=== PATIENT | male | born 1980 | race Caucasian/White ===

== ENCOUNTER 2020-06-27 00:14 | Emergency (ER) | payer SELFPAY ==
[2020-06-27 00:18] VITALS: BP 110/64; PULSE 98; RESP 18; TEMP 36.7; O2SAT 100; BMI 27.9
[2020-06-27 00:29] VITALS: BP 137/66; PULSE 107; O2SAT 100
--- NOTE | 2020-06-27 00:36 | CTR_ITS ---
PROCEDURE INFORMATION: Exam: CT Head Without Contrast Exam date and time: 06/27/2020 12:37 AM Age: 39 years old Clinical indication: Pain; Headache; Additional info: Sudden onset head pain TECHNIQUE: Imaging protocol: Computed tomography of the head without contrast. Radiation optimization: All CT scans at this facility use at least one of these dose optimization techniques: automated exposure control; mA and/or kV adjustment per patient size (includes targeted exams where dose is matched to clinical indication); or iterative reconstruction. ADDITIONAL STUDY INFORMATION: Total DLP (mGy-cm): 1077.18 COMPARISON: No relevant prior studies available. FINDINGS: Some patient motion artifacts are demonstrated. Evaluation of the brain otherwise demonstrates no convincing areas of abnormal density. Size of ventricular system appears within normal limits for the patient's stated age. No depressed calvarial fracture is demonstrated. Visualized paranasal sinuses and mastoid air cells demonstrate no significant opacification. CT/CT head wo con* [id number] IMPRESSION: No definite acute intracranial process is demonstrated. Radiation Dose CTDIVOL = (mGy): DLP = 1077.18 (mGy-cm)
--- NOTE | 2020-06-27 00:37 | W.ED.HA ---
HPI - Headache General: Chief Complaint: Headache Stated Complaint: headache Time Seen by Provider: 06/27/20 00:31 History of Present Illness: HPI Narrative: She complains about sudden onset severe head pain. 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 Denies nausea or vomiting denies any injury stress or other related problems. Denies any illness over the last few weeks. Denies any has had a headache like this in the past. MD elicited complaint: headache Onset (ago): minute(s) Onset description: suddenly Location: generalized Severity: severe Quality & Timing: sharp Exacerbating factors: light Relieving factors: nothing Context: occurred at rest Associated symptoms: Reports no associated symptoms; Deny chest pain, fever(s), nausea, rash or vomiting Treatments prior to arrival: none Review of Systems Const: Denies: fever(s), chills or body aches Eyes: Denies: change in vision or blurry vision ENMT: Denies: throat pain or nasal congestion Card: Denies: chest pain or dyspnea on exertion Resp: Denies: dyspnea, productive cough or non-productive cough GI: Denies: abdominal pain, nausea or vomiting : Denies: difficulty urinating Musc: Denies: extremity pain Skin/Breast: Denies: rash Neuro: Reports: headache(s) (Severe started suddenly 30 minutes ago.) Psych: Denies: anxiety or depression Norberto/Lymph: Denies: easy bruising PFSH ED PFSH: Social History (Updated 11/18/19 @ 10:18 by Basilia Chi LPN) Smoking and tobacco status: never smoked Alcohol intake: never Physical Exam Const: COMMON NORMALS: no acute distress, average body habitus and patient oriented x3 HENMT: COMMON NORMALS: normocephalic HEAD & SCALP: normal to inspection and normocephalic FACE & SINUS: normal facial exam Eye: COMMON NORMALS: conjunctivae normal GENERAL EYE: appearance normal, both eyes and all related structures CONJUNCTIVA: Yes conjunctivae normal Neck/C-Spine: COMMON NORMALS: no JVD Chest: COMMONS NORMALS: normal inspection of the chest Resp: COMMON NORMALS: normal respiratory effort and clear to auscultation bilaterally AUSCULTATION: clear to auscultation bilaterally Cardio: COMMON NORMALS: no JVD, regular rate and regular rhythm RATE: regular rate RHYTHM: regular rhythm Extremity: COMMON NORMALS: normal to inspection and full ROM Neuro: COMMON NORMALS: patient oriented x3, CN's II-XII intact bilaterally, moves all extremities, no focal motor deficits and no sensory deficits noted SPEECH: speech normal Course Vital Signs: Vital signs: Vital Signs Temperature 98.1 F 06/27/20 00:18 Pulse Rate 101 H 06/27/20 01:27 Respiratory Rate 18 06/27/20 00:18 Blood Pressure 137/66 06/27/20 00:29 Pulse Oximetry 96 06/27/20 01:27 Discharge Plan Discharge Patient Disposition: Home Clinical Impression: Headache Qualifiers: Headache type: other vascular headache Qualified Code(s): G44.1 - Vascular headache, not elsewhere classified Condition: Stable Prescriptions: No Action gabapentin 600 mg tablet 600 mg PO DAILY RF: 0 Discharge Orders: Discharge ED (Routine); Ordered 06/27/20 Ordered By: Celso Horowitz Discharge Diet: Usual diet Discharge Activity: Increase activity as tolerated Patient Instructions: Acute Headache (ED) Activity Restrictions/Additional Instructions: Follow-up your family medical provider if no significant improvement. He can return to the ER. Can take Tylenol and/or ibuprofen for headache are [id number] migraine medication as needed. 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
[2020-06-27] MEDS: sodium chloride 0.9% 1,000 ML 999 ML IV (00:48)
[2020-06-27] MEDS: ondansetron 2 mg/ML SDV 2 mL 4 MG IVP (00:48)
[2020-06-27] MEDS: ketorolac 30 mg/mL INJ 15 MG IVP (01:23)
[2020-06-27] MEDS: diphenhydrAMINE 50 mg/mL SDV 1mL 12.5 MG IVP (01:23)
[2020-06-27 01:27] VITALS: PULSE 101; O2SAT 96
[2020-06-27] MEDS: SUMAtriptan 6 mg/0.5 mL SDV SUBCUT (01:47)
[2020-06-27 02:07] VITALS: BP 128/60; PULSE 104; O2SAT 96
[2020-06-27 02:11] VITALS: BP 128/60; PULSE 104; O2SAT 96
== END 2020-06-27 02:12 | disposition home or self-care (01) ==
PROVIDERS: Emergency Provider Nurse Practitioner Family
DX: G44.1 Vascular headache, not elsewhere classified (principal)
CPT/HCPCS: 70450; 96361; 96372; 96374; 96375; 99284; J1200; J1885; J2405; J3030; J7030

== ENCOUNTER 2020-12-24 09:17 | Emergency (ER) | payer SELFPAY ==
[2020-12-24 09:27] VITALS: BP 133/67; PULSE 90; RESP 19; TEMP 37.7; O2SAT 100
--- NOTE | 2020-12-24 09:45 | XR_ITS ---
WS: [id number] Portable AP upright chest, 12/24/2020 Clinical Data: fever, body aches Comparison: Portable chest, 10/05/2014. Findings: No nodules, masses or effusions are seen. The heart is normal. The pulmonary vascularity is not increased. No pneumonia or pneumothorax is seen. XR/XR chest 1V portable [id number] Impression: Negative chest.
--- NOTE | 2020-12-24 09:46 | CT_ITS ---
WS: [id number] CT scan of the abdomen and pelvis with IV contrast. Additional two-dimensional coronal and sagittal r econstruction was performed. 12/24/2020 Clinical Data: abdominal pain, vomiting, dark urine; weight loss Comparison: CT chest abdomen pelvis, 12/10/2007 DLP: 1198.[address] scans at [facility] use at least one of these dose optimization techniques: automat ed exposure control; mA and/or kV adjustment per patient size (includes targeted exams where dose is matched to clinical indication); or iterative reconstruction. Findings: The lower lungs show no nodules, masses or effusions. The liver, gallbladder, spleen, adrenal glands and pancreas are normal. The kidneys show equal bilateral contrast excretion with no cyst or masses. The abdominal aorta is normal in size. No appendicitis or diverticulitis is seen. The stomach, small bowel and colon show no abnormalities. No abscess, adenopathy, ascites, mass, obstruction or free air is seen. The bladder is unremarkable. No inguinal hernia is seen. The bones of the lower thorax, lumbar spine, pelvis, and hips are normal. CT/CT abdomen pelvis w con* [id number] Impression: Negative for acute intra-abdominal or pelvic abnormalities.
--- NOTE | 2020-12-24 09:47 | ED_ITS ---
HPI - Abdominal Pain General: Chief Complaint: Abdominal Pain Stated Complaint: COVID VACCINE YESTERDAY, NOT FEELING WELL TODAY Time Seen by Provider: 12/24/20 09:32 Source: patient Mode of arrival: ambulatory Limitations: no limitations History of Present Illness: HPI narrative: Patient is a 40-year-old male who presents to ED today stating he generally feels unwell. Patient tells me he has been having abdominal pain over the past 3 months. He tells me it feels like his abdomen is twisting . He has had some associated non-bloody emesis as well. Reports bowel movements have been normal. He states yesterday he noticed his urine had white flakes in it and seemed darker than normal. He states over the past few days he has had subjective fevers, chills, and body aches. He did receive a COVID immunization yesterday. Patient has a history of hepatitis C. Admits to previous and recent drug use. MD elicited complaint: abdominal pain Pertinent past history: other (hepatitis C) Onset (ago): day(s) Pain Consistency: constant Location: Diffuse Quality: cramping Radiation: none Migration to: no migration Associated Symptoms: Reports chills, fever(s), nausea and vomiting; Denies change in bowel habits, change in stool character, diarrhea, dysuria, hematochezia, hematuria, hematemesis, melena and syncope Review of Systems Const: Reports: fever(s), chills, body aches, change in weight and fatigue Eyes: Denies: change in vision or blurry vision ENMT: Denies: throat pain, odynophagia, nasal discharge or nasal congestion Card: Denies: chest pain, palpitations, irregular heart rhythm, edema, swell ing of feet/ankles, lightheadedness, syncope or pre-syncope Resp: Denies: dyspnea, productive cough, wheezing, hemoptysis or chest congestion GI: Reports: abdominal pain, nausea and vomiting; Denies: hematemesis, diarrhea, change in bowel habits, change in stool ch aracter, hematochezia or melena : Denies: flank pain, difficulty urinating, dysuria or hematuria Musc: Denies: neck pain, back pain, extremity pain or joint pain Skin/Breast: Denies: rash Neuro: Denies: headache(s), numbness in extremities, weakness in extremities, sensory changes or dizziness [facility] ED PFS: Social History (Updated 11/18/19 @ 10:18 by Basilia Chi LPN) Smoking and tobacco status: never smoked Alcohol intake: never Physical Exam Const: COMMON NORMALS: no acute distress, average body habitus, patient oriented x3, no limitations, healthy appearing, alert and well nourished GENERAL APPEARANCE: cooperative ORIENTATION/CONSCIOUSNESS: Yes awake, Yes oriented to person, Yes oriented to place and Yes oriented to time HENMT: COMMON NORMALS: normocephalic and atraumatic HEAD & SCALP: normocephalic and atraumatic Neck/C-Spine: COMMON NORMALS: full ROM, no lymphadenopathy and no meningeal signs Resp: COMMON NORMALS: normal respiratory effort and clear to auscultation bilaterally AUSCULTATION: clear to auscultation bilaterally Cardio: COMMON NORMALS: regular rate and regular rhythm RATE: regular rate RHYTHM: regular rhythm GI: COMMON NORMALS: Normal to inspection, nondistended, normoactive bowel sounds present, Soft to palpation, No hepatosplenomegaly present and no masses PALPATION: Yes Soft to palpation, Yes Tenderness to palpation present (GI) (diffusely), Yes Guarding due to palpation present (GI) and Yes No hepatospl enomegaly present : COMMON NORMALS: Yes no CVA tenderness BLADDER/KIDNEY EXAM: Yes no CVA tenderness Back/Pelvis: COMMON NORMALS: no CVA tenderness, thoracic and lumbar spine normal to inspection, no thoracic nor lumbar tenderness and thoraco-lumbar ROM normal Extremity: COMMON NORMALS: normal to inspection, capillary refill normal, no clubbing, cyanosis or edema, no calf tenderness and no pedal edema Neuro: PAUL COMA SCALE: document GCS findings [place] coma scale eye opening: Spontaneous Paul coma scale verbal response: Orientated Paul coma scale motor response: Obey commands [place] coma scale total score: 15 COMMON NORMALS: patient oriented x3, CN's II-XII intact bilaterally, moves all extremities, no focal motor deficits, no sensory deficits noted and gait normal SENSORIUM/ORIENTATION: Yes alert, Yes oriented to person, Yes oriented to place and Yes oriented to time MENINGEAL SIGNS: Yes no meningeal signs Skin: COMMON NORMALS: no rashes or lesions noted NARRATIVE SKIN EXAM: multiple tattoos present GENERAL SKIN EXAM: no rashes or lesions noted TRAUMA: no lacerations or abrasions Course Vital Signs: Vital signs: Vital Signs Temperature 99.8 F H 12/24/20 09:27 Pulse Rate 78 12/24/20 11:18 Respiratory Rate 16 12/24/20 11:18 Blood Pressure 137/74 12/24/20 11:18 Pulse Oximetry 97 12/24/20 11:18 MDM - Abdominal Pain MDM Narrative: Medical decision making narrative: Patient clinically appears in no acute distress. His vital signs are stable. Labs are non-concerning. Influenza and rapid COVID negative. CXR is normal. CT abdomen/pelvis without acute pathology. Patient is stable for discharge. He is requesting follow-up with Dr. Small for evaluation for possible treatment of hepatitis C. Lab Data: Attestation: I reviewed the patient's lab results. Labs: Lab Results 12/24/20 12/24/20 12/24/20 Range/Units 09:45 09:45 09:45 WBC 6.0 (4.0-10.0) 10^3/ uL RBC 4.49 (4.1-5.3) 10^6/u L Hgb 13.6 (11.7-16.6) g/dL Hct 39.8 L (42.0-52.0) % MCV 88.6 (80-94) fl MCH 30.3 (28.0-34.0) pg MCHC 34.2 (30.0-36.0) g/dL RDW 12.9 (12.1-15.1) % Plt Count 169 (130-400) 10^3/c mm MPV 9.7 (7.4-10.4) fL Neut % (Auto) 72.5 % Lymph % (Auto) 17.1 % [place] % (Auto) 9.0 % Eos % (Auto) 0.7 % Baso % (Auto) 0.5 % Neut # (Auto) 4.33 (1.8-7.7) 10^3/u L Lymph # (Auto) 1.0 (0.8-4.8) 10^3/u L [place] # (Auto) 0.5 (0.2-0.9) 10^3/u L Eos # (Auto) 0.0 (0.0-0.8) 10^3/u L Baso # (Auto) 0.0 (0.0-0.1) 10^3/u L Nucleated RBC % (a uto) 0 % Nucleated RBCs # 0.0 /100WBC Sodium 135 L (136-145) mmol/L Potassium 3.9 (3.5-5.1) mmol/L Chloride 95 L (98-107) mmol/L Carbon Dioxide 29 (22-29) mmol/L Anion Gap 14.9 (5-19) BUN 14 (6-20) mg/dL Creatinine 0.9 (0.7-1.2) mg/dL GFR Calculation 93.5 (90-130) mL/min Glucose 97 (65-115) mg/dL Calculated Osmolal ity 280 L (285-295) mOsm/k g Lactic Acid 1.7 (0.5-2.2) mmol/L Calcium 8.8 (8.5-10.5) mg/dL Total Bilirubin 1.0 (0.15-1.2) mg/dL AST 38 (0-40) U/L ALT 48 H (0-41) U/L Alkaline Phosphata se 109 (40-130) IU/L Creatine Kinase 111 (39-308) U/L Total Protein 6.9 (6.6-8.7) g/dL Albumin 4.1 (3.5-5.2) g/dL Globulin 2.8 (1.3-4.6) g/dL Lipase 21 (13-60) U/L Urine Color (Yellow) Urine Appearance (CLEAR) Urine pH (5-7) Ur Specific Gravit y (1.005-1.030) Urine Protein (Negative) Urine Glucose (UA) (Normal) Urine Ketones (Negative) Urine Blood (Negative) Urine Nitrate (Negative) Urine Bilirubin (Negative) Urine Urobilinogen (Negative) mg/dL Ur Leukocyte Galina ase (Negative) Urine RBC (0-2) /hpf Urine WBC (0-5) /hpf Ur Squamous Epith Cells (0-5) /hpf Amorphous Sediment Urine Bacteria (NONE) /hpf Influenza Type A A g (Negative) Influenza Type B A g (Negative) SARS-CoV-2 Ag (Rap id) (Negative) 12/24/20 12/24/20 12/24/20 Range/Units 10: 10:21 11:30 WBC (4.0-10.0) 10^3/ uL RBC (4.1-5.3) 10^6/u L Hgb (11.7-16.6) g/dL Hct (42.0-52.0) % MCV (80-94) fl MCH (28.0-34.0) pg MCHC (30.0-36.0) g/dL RDW (12.1-15.1) % Plt Count (130-400) 10^3/c mm MPV (7.4-10.4) fL Neut % (Auto) % Lymph % (Auto) % [place] % (Auto) % Eos % (Auto) % Baso % (Auto) % Neut # (Auto) (1.8-7.7) 10^3/u L Lymph # (Auto) (0.8-4.8) 10^3/u L [place] # (Auto) (0.2-0.9) 10^3/u L Eos # (Auto) (0.0-0.8) 10^3/u L Baso # (Auto) (0.0-0.1) 10^3/u L Nucleated RBC % (a uto) % Nucleated RBCs # /100WBC Sodium (136-145) mmol/L Potassium (3.5-5.1) mmol/L Chloride (98-107) mmol/L Carbon Dioxide (22-29) mmol/L Anion Gap (5-19) BUN (6-20) mg/dL Creatinine (0.7-1.2) mg/dL GFR Calculation (90-130) mL/min Glucose (65-115) mg/dL Calculated Osmolal ity (285-295) mOsm/k g Lactic Acid (0.5-2.2) mmol/L Calcium (8.5-10.5) mg/dL Total Bilirubin (0.15-1.2) mg/dL AST (0-40) U/L ALT (0-41) U/L Alkaline Phosphata se (40-130) IU/L Creatine Kinase (39-308) U/L Total Protein (6.6-8.7) g/dL Albumin (3.5-5.2) g/dL Globulin (1.3-4.6) g/dL Lipase (13-60) U/L Urine Color Yellow (Yellow) Urine Appearance Clear (CLEAR) Urine pH 5 (5-7) Ur Specific Gravit y 1.010 (1.005-1.030) Urine Protein Neg (Negative) Urine Glucose (UA) Norm (Normal) Urine Ketones Negative (Negative) Urine Blood Neg (Negative) Urine Nitrate Negative (Negative) Urine Bilirubin Neg (Negative) Urine Urobilinogen Neg (Negative) mg/dL Ur Leukocyte Galina ase 1+ H (Negative) Urine RBC None (0-2) /hpf Urine WBC 0-4 H (0-5) /hpf Ur Squamous Epith Cells 0-4 H (0-5) /hpf Amorphous Sediment Not Reportable Urine Bacteria None (NONE) /hpf Influenza Type A A g Negative (Negative) Influenza Type B A g Negative (Negative) SARS-CoV-2 Ag (Rap id) Negative (Negative) Imaging Data ^: CXR: Radiologist's impression: [address] [id number] ReportSigned Patient: Phong Knight #: [id number]: [birth year]Acct#:[id number]/Sex: 40 / MADM Date: 12/24/20Loc: ERRoom/Bed:Attending Dr: Ordering Provider/Ordering MD: Ruby Ramírez Date of Service: 12/24/20 Procedure(s): XR chest 1V portable [id number] Accession Number(s): [id number] Report Number: [id number] WS: [id number] Portable AP upright chest, 12/24/2020 Clinical Data: fever, body aches Comparison: Portable chest, 10/05/2014. Findings: No nodules, masses or effusions are seen. The heart is normal. The pulmonary vascularity is not increased. No pneumonia or pneumothorax is seen. XR/XR chest 1V portable [id number] Impression: Negative chest. Dictated By:Bing Ruelas MDSigned By:Bing Ruelas MDSigned Date/Time:12/24/2056DD/ 0955 CT Abd/Pel: Radiologist's impression: [address] [id number] Scan ReportSigned Patient: Phong Knight #: [id number]: 1980Acct#:[id number]/Sex: 40 / MADM Date: 12/24/20Loc: ERRoom/Bed:Attending Dr: Ordering Provider/Ordering MD: Ruby Ramírez Date of Service: 12/24/20 Procedure(s): CT abdomen pelvis w con* [id number] Accession Number(s): [id number] Report Number: [id number] WS: [id number] CT scan of the abdomen and pelvis with IV contrast. Additional two-dimensional coronal and sagittal reconstruction was performed. 12/24/2020 Clinical Data: abdominal pain, vomiting, dark urine; weight loss Comparison: CT chest abdomen pelvis, 12/10/2007 DLP: 1198.[address] scans at [facility] use at least one of these dose optimizat ion techniques: automated exposure control; mA and/or kV adjustment per patient size (includes targeted exams where dose is matched to clinical indication); or iterative reconstruction. Findings: The lower lungs show no nodules, masses or effusions. The liver, gallbladder, spleen, adrenal glands and pancreas are normal. The kidneys show equal bilateral contrast excretion with no cyst or masses. The abdominal aorta is normal in size. No appendicitis or diverticulitis is seen. The stomach, small bowel and colon show no abnormalities. No abscess, adenopathy, ascites, mass, obstruction or free air is seen. The bladder is unremarkable. No inguinal hernia is seen. The bones of the lower thorax, lumbar spine, pelvis, and hips are normal. CT/CT abdomen pelvis w con* [id number] Impression: Negative for acute intra-abdominal or pelvic abnormalities. Dictated By:Bing Ruelas MDSigned By:Bing Ruelas MDSigned Date/Time:12/24/20 1100DD/ 1054 Discharge Plan Discharge Patient Disposition: Home Clinical Impression: Generally unwell Condition: Stable Prescriptions: No Action [place] Aspirin 325 mg Tablet 325 mg PO PRN RF: 0 ibuprofen 200 mg Tablet 800 mg PO Q6H PRN (Reason: Pain) RF: 0 Discharge Orders: Discharge ED (Routine); Ordered 12/24/20 Ordered By: Ruby Ramírez Referrals: Gildardo Small MD [Physician] - Coding Level of Care Code ED Manager Express for Chg Fwd Exam Comprehensive
[2020-12-24 09:57] LABS: Basophils % 0.5 %; Eosinophils % 0.7 %; Hematocrit 39.8 % (42.0-52.0); Hemoglobin 13.6 g/dL (11.7-16.6); Lymphocytes % 17.1 %; Mean Corpuscular HGB Conc 34.2 g/dL (30.0-36.0); Mean Corpuscular Hemoglobin 30.3 pg (28.0-34.0); Mean Corpuscular Volume 88.6 fl (80-94); Mean Platelet Volume 9.7 fL (7.4-10.4); Monocytes # 0.5 10^3/uL (0.2-0.9); Neutrophils # 4.33 10^3/uL (1.8-7.7); Neutrophils % 72.5 %; Nucleated Red Blood Cells % 0 %; Platelet Count 169 10^3/cmm (130-400); Red Blood Count 4.49 10^6/uL (4.1-5.3); Red Cell Distribution Width 12.9 % (12.1-15.1)
[2020-12-24 10:12] LABS: Lactic Sepsis W/Reflex 1.7 mmol/L (0.5-2.2)
[2020-12-24 10:16] LABS: Alanine Aminotransferase 48 U/L (0-41); Albumin Level 4.1 g/dL (3.5-5.2); Alkaline Phosphatase 109 IU/L (40-130); Anion Gap 14.9 (5-19); Aspartate Amino Transferase 38 U/L (0-40); Blood Urea Nitrogen 14 mg/dL (6-20); Calcium 8.8 mg/dL (8.5-10.5); Carbon Dioxide 29 mmol/L (22-29); Chloride 95 mmol/L (98-107); Creatine Phosphokinase 111 U/L (39-308); Globulin 2.8 g/dL (1.3-4.6); Glomerular Filtration Rate 93.5 mL/min (90-130); Glucose 97 mg/dL (65-115); Lipase 21 U/L (13-60); Osmolality Calculated 280 mOsm/kg (285-295); Potassium 3.9 mmol/L (3.5-5.1); Sodium 135 mmol/L (136-145); Total Protein 6.9 g/dL (6.6-8.7)
[2020-12-24] MEDS: sodium chloride 0.9% 1,000 ML 999 ML IV (10:16)
[2020-12-24 10:18] VITALS: BP 129/63; PULSE 68; RESP 16; O2SAT 97
--- NOTE | 2020-12-24 10:30 | PC.PHAR ---
PT STATES HE TAKES NO RX MEDICATIONS-PT STATES HE TAKES STEPHEN ASPIRIN 325MG PRN FOR HIS HEP C
[2020-12-24] MEDS: iohexol 300 mg/mL 100 mL Btl IV (10:44)
[2020-12-24 10:54] LABS: Influenza A by IFA Negative (Negative); Influenza B by IFA Negative (Negative); SARS Covid-2 Antigen Negative (Negative)
[2020-12-24 11:18] VITALS: BP 137/74; PULSE 78; RESP 16; O2SAT 97
[2020-12-24 11:57] LABS: Add Urine Microscopic? YES; Bilirubin Urine Neg (Negative); Blood Urine Neg (Negative); Glucose Urine UA Norm (Normal); Ketones Urine Negative (Negative); Leukocyte Esterase Urine 1+ (Negative); Nitrate Urine Negative (Negative); Protein Urine Neg (Negative); Urine Appearance Clear (CLEAR); Urine Color Yellow (Yellow); Urobilinogen Urine Neg (Negative); pH Urine 5 (5-7)
[2020-12-24 11:58] LABS: Squamous Epithelial Cell Urine 0-4 /hpf (0-5); WBC Urine 0-4 /hpf (0-5)
[2020-12-24 12:15] VITALS: BP 123/71; PULSE 84; RESP 16
--- NOTE | 2020-12-25 10:13 | DCPLANNER ---
Addendum entered by Flakita Bryant 12/28/20 14:19: Patient called case hardener back, case hardener gave patient the appointment information. Original Note: school business manager had message to schedule a follow up appointment for patient with Dr. Small. school business manager called the office of Dr. Small, spoke with Milagros, gave clinic patients information. A follow up appointment was scheduled for , January 07, 2021 at 2:[address] Small. school business manager called phone number [phone] unable to speak with patient, a voicemail was left for patient to return case consultant phone call. school business manager called phone number [phone], left a voicemail for patient. school business manager called phone number [phone] a voicemail was left for patient with appointment information. school business manager will mail patient a letter with appointment information.
--- NOTE | 2021-01-29 08:18 | DCPLANNER ---
Patient had a follow up appointment scheduled for 01.07.[address] Small - patient did not attend appointment.
== END 2020-12-24 12:17 | disposition home or self-care (01) ==
PROVIDERS: Emergency Provider Physician Assistant
DX: R69 Illness, unspecified (principal); U07.1 COVID-19
CPT/HCPCS: 71045; 74177; 80053; 81001; 82550; 83605; 83690; 85025; 87426; 87804; 96360; 99283; J7030; Q9967

== ENCOUNTER 2021-01-04 12:56 | Emergency (ER) | payer SELFPAY ==
[2021-01-04 12:57] VITALS: BP 126/69; PULSE 83; RESP 18; TEMP 36.6; O2SAT 97; BMI 24.4
--- NOTE | 2021-01-04 13:03 | ECG_ITS ---
[facility] Test Date: 2021-01-04 Pat Name: Phong Knight Department: Room: Gender: Male Stone Rougher: : 1980 Requested By: Ramin Busch Order Number: [id number] MD: Regino Layne M.D. Measurements Intervals [place] Rate: 86 P: 65 IN: 152 QRS: 74 QRSD: 90 T: 67 QT: 396 QTc: 475 Interpretive Statements SINUS RHYTHM VOLTAGE CRITERIA FOR LVH [MEETS CRITERIA IN ONE OF: R(aVL), S(V1), R(V5), R(V5/V6)+S(V1)] Compared to ECG 10/05/2014 13:02:58 Left ventricular hypertrophy now present Electronically Signed On 01-04-2021 19:29:07 CDT by Regino Layne M.D. [id number]
--- NOTE | 2021-01-04 13:12 | CT_ITS ---
WS: [id number] CT HEAD NONCONTRAST HISTORY: ams TECHNIQUE: Contiguous axial imaging performed through the brain in 2.5 mm imaging. Bone and soft tiss ue windows. Sagittal and coronal reformats reviewed. All CT scans at [facility] use at ast one of these dose optimization techniques: automated exposure control; mA and/or kV adjustment pe r patient size (includes targeted exams where dose is matched to clinical indication); or iterative r econstruction. DLP: 948.79 mGy.cm COMPARISON: 06/27/2020 No acute intracranial hemorrhage, midline shift or mass effect. No atrophy or prior infarcts or herniation. Ventricles: Normal size with no hydrocephalus. Paranasal sinuses: As visualized are clear. Mastoid air cells: Well pneumatized. Calvarium and scalp: Skull is intact with no soft tissue edema or swelling. CT/CT head wo con* [id number] IMPRESSION: Negative head CT.
--- NOTE | 2021-01-04 13:15 | PC.PHAR ---
PT UNABLE TO CONFIRM MEDICATIONS. PT'S FRIEND WHO IS WITH HIM STATES THAT HE TAKES METHADONE, BUT SHE DOESN'T KNOW ANY MORE THAN THAT. SHE DOESN'T KNOW WHERE HE GETS IT, THE DOSAGE OR THE DIRECTIONS.
[2021-01-04 13:19] LABS: Glucose Point of Care 105 mg/dL (70-110)
--- NOTE | 2021-01-04 13:32 | W.ED.GENADLT ---
HPI - General Adult General: Chief complaint: Overdose Stated complaint: PASSED OUT Time Seen by Provider: 01/04/21 13:02 History of Present Illness: HPI narrative: CC: AMS HPI: [40]yo patient w/ PMH of alcohol use, hepatitis C, meth use BIBA for altered mental status. Per friend, patient was last seen normal when he got into a car with her in [place]. He drank a bottle of whiskey just prior to getting in the car with her. While they were driving and conversing, patient suddenly became somnolent and confused. Friend denies the patient had any history of seizures. Patient was brought to the emergency room for further evaluation. In the ED, the patient is occasionally responsive to questions, moving all extremities occasionally following commands, somnolent. Onset: 2 hrs ago Duration: ongoing, unclear duration Location: home Severity: moderate Review of Systems Narrative: REVIEW OF SYSTEMS unable to obtain due to current cognitive status PFS ED PFSH: Social History (Updated 11/18/19 @ 10:18 by Basilia Chi LPN) Smoking and tobacco status: never smoked Alcohol intake: never Physical Exam Narrative: EXAM NARRATIVE: Head: Atraumatic Eyes: PERRL, conjunctiva without injection, pupils midsized b/l ENT: Mucous membrane moist NECK: Supple without lymphadenopathy LUNGS: LCTA bilaterally CV: RRR ABDOMEN: Soft, nontender in all quadrants, no guarding no rebound tenderness EXTREMITY: Normal ROM SKIN: No rash or erythema, no signs of track veliz, no visible patches, no noticeable cellulitis NEURO: Somnolent but arousable, moving all extremities, GCS of 13 PSYCH: Somnolent unable to fully assess at this time Course Vital Signs: Vital signs: Vital Signs Temperature 97.8 F 01/04/21 12:57 Pulse Rate 92 01/04/21 18:46 Respiratory Rate 16 01/04/21 18:46 Blood Pressure 130/72 01/04/21 18:46 Pulse Oximetry 97 01/04/21 18:46 MDM - General Adult MDM Narrative: Medical decision making narrative: [40]yo patient w/ hx of meth use, alcohol use, and hepatitis C BIBA for AMS, last seen normal 2 hrs ago. Airway maintained. No signs of trauma including bruises, hematoma, lacerations, or basilar skull fracture. NO increased work of breathing or tachypnea on presentation, no suspicion for toxic alcohol vs ASA overdose vs DKA. DDx broad including intracranial injuries, metabolic phenomenon, substance intoxication/withdrawal, and sepsis. Toxidrome Findings: Negative. No rigidity or clonus of LE ankle/knee reflexes, no diaphoresis, pupils mid-ranged equal and reactive to light, no signs of track veliz/body patches, normal bowel sounds, and bladder non-palpable/ non-distended. POC Glucose: 105 EKG: Normal Sinus Rhythm. No overt ischemic findings and no prolongation of QTc or QRS intervals. No signs of hyperkalemia (peaked T waves, QRS widening, and OH prolongation) or sodium channel blockade. Workup: CBC, CMP, lipase level, acetaminophen level, salicylate level, serum alcohol level, EKG VBG, CK, UA, ECG, CT brain, XR Chest Intervention: IVF, reevaluation Lab Findings: CPK of 390, alcohol of 143 Imaging studies: negative [6:30pm] On reassessment, [place] evaluation within normal limit. CT brain not show any signs of acute bleed. Patient is noted to have an alcohol level of 143. Tylenol salicylate within normal limit. Patient received IVF in the emergency room. At the present time, she has GCS 15, AAOx3, able to answer all questions. Patient denies any excessive opioid use. Patient is currently on methadone, denies any increase in usage of methadone. At the present time, patient appears to be stable for discharge. Patient ambulated in the emergency room and tolerated PO without any difficulty. Initial CPK of 390 which improved to 359 after fluid challenge. Patient is able to urinate without any difficulty. Creatinine within normal limit. No suspicion for rhabdomyolysis at this time. Disposition: Discharge. Patient is given strict return precaution for any worsening signs of fever/chills, worsening altered mental status, nausea/vomiting, or any new or concerning complaints. I discussed findings with patient's friend who agrees to bring back to the emergency room should there be any changes in his mental status. Lab Data: Labs: Lab Results 01/04/21 01/04/21 01/04/21 Range/Units 13:16 13:50 13:50 WBC 6.7 (4.0-10.0) 10^3/ uL RBC 4.89 (4.1-5.3) 10^6/u L Hgb 14.6 (11.7-16.6) g/dL Hct 43.8 (42.0-52.0) % MCV 89.6 (80-94) fl MCH 29.9 (28.0-34.0) pg MCHC 33.3 (30.0-36.0) g/dL RDW 12.8 (12.1-15.1) % Plt Count 238 (130-400) 10^3/c mm MPV 9.4 (7.4-10.4) fL Neut % (Auto) 54.7 % Lymph % (Auto) 36.4 % [place] % (Auto) 7.7 % Eos % (Auto) 0.3 % Baso % (Auto) 0.6 % Neut # (Auto) 3.69 (1.8-7.7) 10^3/u L Lymph # (Auto) 2.5 (0.8-4.8) 10^3/u L [place] # (Auto) 0.5 (0.2-0.9) 10^3/u L Eos # (Auto) 0.0 (0.0-0.8) 10^3/u L Baso # (Auto) 0.0 (0.0-0.1) 10^3/u L Nucleated RBC % (a uto) 0 % Nucleated RBCs # 0.0 /100WBC Sodium 140 (136-145) mmol/L Potassium 3.7 (3.5-5.1) mmol/L Chloride 102 (98-107) mmol/L Carbon Dioxide 25 (22-29) mmol/L Anion Gap 16.7 (5-19) BUN 27 H (6-20) mg/dL Creatinine 1.1 (0.7-1.2) mg/dL GFR Calculation 74.1 L (90-130) mL/min Glucose 80 (65-115) mg/dL POC Glucose 105 (70-110) mg/dL Calculated Osmolal ity 294 (285-295) mOsm/k g Calcium 8.8 (8.5-10.5) mg/dL Total Bilirubin 0.9 (0.15-1.2) mg/dL AST 56 H (0-40) U/L ALT 55 H (0-41) U/L Alkaline Phosphata se 105 (40-130) IU/L Creatine Kinase 390 H* (39-308) U/L Total Protein 7.5 (6.6-8.7) g/dL Albumin 4.4 (3.5-5.2) g/dL Globulin 3.1 (1.3-4.6) g/dL Lipase 14 (13-60) U/L Urine Color (Yellow) Urine Appearance (CLEAR) Urine pH (5-7) Ur Specific Gravit y (1.005-1.030) Urine Protein (Negative) Urine Glucose (UA) (Normal) Urine Ketones (Negative) Urine Blood (Negative) Urine Nitrate (Negative) Urine Bilirubin (Negative) Urine Urobilinogen (Negative) mg/dL Ur Leukocyte Galina ase (Negative) Urine RBC (0-2) /hpf Urine WBC (0-5) /hpf Ur Squamous Epith Cells (0-5) /hpf Amorphous Sediment Urine Bacteria (NONE) /hpf Salicylates < 0.3 L (3-10) mg/dL Acetaminophen < 5.0 L (10-30) ug/mL Ethyl Alcohol 143 H (0-10) mg/dL 01/04/21 01/04/21 Range/Units 16:24 17:00 WBC (4.0-10.0) 10^3/ uL RBC (4.1-5.3) 10^6/u L Hgb (11.7-16.6) g/dL Hct (42.0-52.0) % MCV (80-94) fl MCH (28.0-34.0) pg MCHC (30.0-36.0) g/dL RDW (12.1-15.1) % Plt Count (130-400) 10^3/c mm MPV (7.4-10.4) fL Neut % (Auto) % Lymph % (Auto) % [place] % (Auto) % Eos % (Auto) % Baso % (Auto) % Neut # (Auto) (1.8-7.7) 10^3/u L Lymph # (Auto) (0.8-4.8) 10^3/u L [place] # (Auto) (0.2-0.9) 10^3/u L Eos # (Auto) (0.0-0.8) 10^3/u L Baso # (Auto) (0.0-0.1) 10^3/u L Nucleated RBC % (a uto) % Nucleated RBCs # /100WBC Sodium (136-145) mmol/L Potassium (3.5-5.1) mmol/L Chloride (98-107) mmol/L Carbon Dioxide (22-29) mmol/L Anion Gap (5-19) BUN (6-20) mg/dL Creatinine (0.7-1.2) mg/dL GFR Calculation (90-130) mL/min Glucose (65-115) mg/dL POC Glucose (70-110) mg/dL Calculated Osmolal ity (285-295) mOsm/k g Calcium (8.5-10.5) mg/dL Total Bilirubin (0.15-1.2) mg/dL AST (0-40) U/L ALT (0-41) U/L Alkaline Phosphata se (40-130) IU/L Creatine Kinase 359 H* (39-308) U/L Total Protein (6.6-8.7) g/dL Albumin (3.5-5.2) g/dL Globulin (1.3-4.6) g/dL Lipase (13-60) U/L Urine Color [place] (Yellow) Urine Appearance Hazy A (CLEAR) Urine pH 5 (5-7) Ur Specific Gravit y 1.030 (1.005-1.030) Urine Protein Trace (Negative) Urine Glucose (UA) Norm (Normal) Urine Ketones 1+ H (Negative) Urine Blood Neg (Negative) Urine Nitrate Negative (Negative) Urine Bilirubin 1+ H (Negative) Urine Urobilinogen 1 H (Negative) mg/dL Ur Leukocyte Galina ase Trace H (Negative) Urine RBC 0-4 H (0-2) /hpf Urine WBC 10-15 H (0-5) /hpf Ur Squamous Epith Cells 0-4 H (0-5) /hpf Amorphous Sediment Not Reportable Urine Bacteria 1+ H (NONE) /hpf Salicylates (3-10) mg/dL Acetaminophen (10-30) ug/mL Ethyl Alcohol (0-10) mg/dL Imaging Data^: Other Imaging: Radiologist's impression: [address] [id number] Scan ReportSigned Patient: Phong Knight Vikram #: [id number]: [id number]#:[id number]/Sex: 40 / MADM Date: 01/04/21Loc: ERRoom/Bed:Attending Dr: Ordering Provider/Ordering MD: Ramin Busch MD Date of Service: 01/04/21 Procedure(s): CT head wo con* [id number] Accession Number(s): [id number] Report Number: [id number] WS: [id number] CT HEAD NONCONTRAST HISTORY: ams TECHNIQUE: Contiguous axial imaging performed through the brain in 2.5 mm imaging. Bone and soft tissue windows. Sagittal and coronal reformats reviewed. All CT scans at [facility] use at least one of these dose optimization techniques: automated exposure control; mA and/or kV adjustment per patient size (includes targeted exams where dose is matched to clinical indication); or iterative reconstruction. DLP: 948.79 mGy.cm COMPARISON: 06/27/2020 No acute intracranial hemorrhage, midline shift or mass effect. No atrophy or prior infarcts or herniation. Ventricles: Normal size with no hydrocephalus. Paranasal sinuses: As visualized are clear. Mastoid air cells: Well pneumatized. Calvarium and scalp: Skull is intact with no soft tissue edema or swelling. CT/CT head wo con* [id number] IMPRESSION: Negative head CT. Dictated By:Maria Luisa Samano DOSigned By:Maria Luisa Samano DOSigned Date/Time:01/04/21 1436DD/ 1435 Discharge Plan Discharge Patient Disposition: Home Clinical Impression: Altered mental status, Alcohol ingestion, Elevated CPK Condition: Stable Prescriptions: No Action aspirin [Gardenia Aspirin] 325 mg Tablet 325 mg PO PRN RF: 0 ibuprofen 200 mg Tablet 800 mg PO Q6H PRN (Reason: Pain) RF: 0 methadone See Rx Instructions .ROUTE .COMPLEX RF: 0 Discharge Orders: Discharge ED (Routine); Ordered 01/04/21 Ordered By: Ramin Busch Discharge Diet: Advance as tolerated Discharge Activity: Resume usual activity Patient Instructions: Abuse of Alcohol (ED), Opioid Safety Activity Restrictions/Additional Instructions: Please follow-up with your primary care doctor for evaluation of hepatitis C. Please come back to the emergency room you have any new or concerning issues. Come back if you feel more tired, if you have any abdominal complaints, chest pain, difficulty breathing, and any new or concerning issues. Coding Level of Care Code ED All Round Logger for Zain Zamora
[2021-01-04 14:03] LABS: Basophils % 0.6 %; Eosinophils % 0.3 %; Hematocrit 43.8 % (42.0-52.0); Hemoglobin 14.6 g/dL (11.7-16.6); Lymphocytes # 2.5 10^3/uL (0.8-4.8); Lymphocytes % 36.4 %; Mean Corpuscular HGB Conc 33.3 g/dL (30.0-36.0); Mean Corpuscular Hemoglobin 29.9 pg (28.0-34.0); Mean Corpuscular Volume 89.6 fl (80-94); Mean Platelet Volume 9.4 fL (7.4-10.4); Monocytes # 0.5 10^3/uL (0.2-0.9); Monocytes % 7.7 %; Neutrophils # 3.69 10^3/uL (1.8-7.7); Neutrophils % 54.7 %; Nucleated Red Blood Cells % 0 %; Platelet Count 238 10^3/cmm (130-400); Red Blood Count 4.89 10^6/uL (4.1-5.3); Red Cell Distribution Width 12.8 % (12.1-15.1); White Blood Count 6.7 10^3/uL (4.0-10.0)
[2021-01-04 14:35] LABS: Alanine Aminotransferase 55 U/L (0-41); Albumin Level 4.4 g/dL (3.5-5.2); Alcohol Level 143 mg/dL (0-10); Alkaline Phosphatase 105 IU/L (40-130); Aspartate Amino Transferase 56 U/L (0-40); Blood Urea Nitrogen 27 mg/dL (6-20); Calcium 8.8 mg/dL (8.5-10.5); Carbon Dioxide 25 mmol/L (22-29); Chloride 102 mmol/L (98-107); Creatinine Clr Calc Pharmacy 97.1359; Globulin 3.1 g/dL (1.3-4.6); Glomerular Filtration Rate 74.1 mL/min (90-130); Glucose 80 mg/dL (65-115); Lipase 14 U/L (13-60); Osmolality Calculated 294 mOsm/kg (285-295); Sodium 140 mmol/L (136-145); Total Bilirubin 0.9 mg/dL (0.15-1.2); Total Protein 7.5 g/dL (6.6-8.7)
[2021-01-04 14:41] LABS: Acetaminophen < 5.0 ug/mL (10-30); Anion Gap 16.7 (5-19); Creatine Phosphokinase 390 U/L (39-308); Potassium 3.7 mmol/L (3.5-5.1); Salicylate < 0.3 mg/dL (3-10)
[2021-01-04 14:48] VITALS: BP 116/64; PULSE 76; RESP 16; O2SAT 100
[2021-01-04] MEDS: sodium chloride 0.9% 1,000 ML 999 ML IV ×2 (15:02→15:05)
[2021-01-04 17:14] VITALS: BP 154/73; PULSE 84; RESP 16; O2SAT 100
[2021-01-04 17:41] LABS: Glucose Urine UA Norm (Normal); Ketones Urine 1+ (Negative); Protein Urine Trace (Negative); Urine Appearance Hazy (CLEAR); Urine Color Amber (Yellow); pH Urine 5 (5-7)
[2021-01-04 17:42] LABS: Add Urine Microscopic? YES; Bilirubin Urine 1+ (Negative); Blood Urine Neg (Negative); Leukocyte Esterase Urine Trace (Negative); Nitrate Urine Negative (Negative); Urobilinogen Urine 1 mg/dL (Negative)
[2021-01-04 17:43] LABS: Bacteria Urine 1+ /hpf; RBC Urine 0-4 /hpf (0-2); Squamous Epithelial Cell Urine 0-4 /hpf (0-5)
[2021-01-04 17:44] LABS: Add Urine Culture? Yes
[2021-01-04 18:23] LABS: Creatine Phosphokinase 359 U/L (39-308)
[2021-01-04 18:46] VITALS: BP 130/72; PULSE 92; RESP 16; O2SAT 97
== END 2021-01-04 18:48 | disposition home or self-care (01) ==
PROVIDERS: Emergency Provider Emergency Medicine
DX: R41.82 Altered mental status, unspecified (principal); R79.9 Abnormal finding of blood chemistry, unspecified; F10.929 Alcohol use, unspecified with intoxication, unspecified; Y90.6 Blood alcohol level of 120-199 mg/100 ml; Z86.19 Personal history of other infectious and parasitic diseases
CPT/HCPCS: 36416; 70450; 80053; 80307; 81001; 82550; 82962; 83690; 85025; 87086; 93005; 96360; 96361; 99284; J7030

== ENCOUNTER 2021-05-17 16:32 | Emergency (ER) | payer MEDICAID, SELFPAY ==
[2021-05-17 16:37] VITALS: BP 134/77; PULSE 81; RESP 19; O2SAT 98; BMI 31.4
--- NOTE | 2021-05-17 17:40 | CTR_ITS ---
PROCEDURE INFORMATION: Exam: CT Head Without Contrast Exam date and time: 05/17/2021 5:40 PM Age: 40 years old Clinical indication: Altered mental status/memory loss; Additional info: Symptoms of acute stroke TECHNIQUE: Imaging protocol: Computed tomography of the head without contrast. Radiation optimization: All CT scans at this facility use at least one of these dose optimization techniques: automated exposure control; mA and/or kV adjustment per patient size (includes targeted exams where dose is matched to clinical indication); or iterative reconstruction. COMPARISON: CT head wo con* [id number] 01/04/2021 2:19 PM RADIATION DOSE METRICS: Total DLP (mGy-cm): 1635.81 FINDINGS: Brain: There is no evidence of infarct, pearce-white matter differentiation is preserved. There is no hemorrhage or extra-axial collection. There is no mass. Cerebral ventricles: There is no hydrocephalus. Paranasal sinuses: Visualized sinuses are unremarkable. No fluid levels. Mastoid air cells: Visualized mastoid air cells are well aerated. Bones/joints: Unremarkable. No acute fracture. Soft tissues: Unremarkable. CT/CT head wo con* [id number] IMPRESSION: No intracranial lesion or injury
--- NOTE | 2021-05-17 17:40 | XRR_ITS ---
PROCEDURE INFORMATION: Exam: XR Chest Exam date and time: 05/17/2021 5:40 PM Age: 40 years old Clinical indication: Other: AMS, unable to provide history; Additional info: Altered mental status TECHNIQUE: Imaging protocol: XR of the chest. Views: 1 view. COMPARISON: CR XR chest 1V portable [id number] 12/24/2020 9:45 AM FINDINGS: Lungs: There are minimal linear atelectatic densities at the lung bases. No consolidation. Pleural spaces: Unremarkable. No pleural effusion. No pneumothorax. Heart/Mediastinum: Unremarkable. No cardiomegaly. Bones/joints: Unremarkable. XR/XR chest 1V portable [id number] IMPRESSION: Minimal bibasilar linear atelectasis. No consolidation.
--- NOTE | 2021-05-17 17:40 | ECG_ITS ---
[facility] Test Date: 2021-05-17 Pat Name: Phong Knight Department: Room: Gender: Male Mds Rn: : 1980 Requested By: Saran Sanchez Order Number: [id number] Seth MD: Erna Mcleod M.D. Measurements Intervals [place] Rate: 146 P: IL: QRS: 83 QRSD: 89 T: 64 QT: 296 QTc: 462 Interpretive Statements ATRIAL FIBRILLATION WITH RAPID VENTRICULAR RESPONSE ABNORMAL RHYTHM ECG Compared to ECG 01/04/2021 13:20:31 Sinus rhythm no longer present Left ventricular hypertrophy no longer present Electronically Signed On 05-18-2021 5:00:34 HOISTMAN by Erna Mcleod M.D. [id number]
[2021-05-17 17:52] LABS: Basophils % 0.2 %; Eosinophils % 0.1 %; Hematocrit 47.5 % (42.0-52.0); Hemoglobin 15.8 g/dL (11.7-16.6); Lymphocytes # 1.5 10^3/uL (0.8-4.8); Lymphocytes % 11.3 %; Mean Corpuscular HGB Conc 33.3 g/dL (30.0-36.0); Mean Corpuscular Hemoglobin 29.9 pg (28.0-34.0); Mean Platelet Volume 9.6 fL (7.4-10.4); Monocytes # 0.8 10^3/uL (0.2-0.9); Monocytes % 6.1 %; Neutrophils # 11.06 10^3/uL (1.8-7.7); Neutrophils % 82.1 %; Nucleated Red Blood Cells % 0 %; Platelet Count 251 10^3/cmm (130-400); Red Blood Count 5.28 10^6/uL (4.1-5.3); Red Cell Distribution Width 13.8 % (12.1-15.1); White Blood Count 13.5 10^3/uL (4.0-10.0)
[2021-05-17 18:03] LABS: INR 0.89 (0.8-1.2)
[2021-05-17 18:04] LABS: Partial Thromboplastin Time 24.4 SECONDS (23.9-36.7)
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
[2021-05-17 18:55] LABS: Alanine Aminotransferase 95 U/L (0-41); Albumin Level 4.6 g/dL (3.5-5.2); Alkaline Phosphatase 161 IU/L (40-130); Anion Gap 24.8 (5-19); Aspartate Amino Transferase 210 U/L (0-40); Blood Urea Nitrogen 10 mg/dL (6-20); Calcium 9.1 mg/dL (8.5-10.5); Carbon Dioxide 20 mmol/L (22-29); Chloride 103 mmol/L (98-107); Globulin 3.5 g/dL (1.3-4.6); Glomerular Filtration Rate 67.1 mL/min (90-130); Glucose 95 mg/dL (65-115); Osmolality Calculated 297 mOsm/kg (285-295); Potassium 3.8 mmol/L (3.5-5.1); Sodium 144 mmol/L (136-145); Total Bilirubin 0.2 mg/dL (0.15-1.2); Total Protein 8.1 g/dL (6.6-8.7)
--- NOTE | 2021-05-17 18:56 | PC.NURSE ---
Pt placed on continual cardiac, BP, and SpO2 monitoring upon arrival into room.
[2021-05-17 19:15] VITALS: BP 132/72; PULSE 142; RESP 96; O2SAT 98
[2021-05-17 20:00] VITALS: BP 131/79; RESP 18; O2SAT 94
[2021-05-17 20:32] LABS: Amphetamines Screen Urine Negative (Negative); Barbiturates Screen Urine Negative (Negative); Benzodiazepines Screen Urine Negative (Negative); Cocaine Screen Urine Negative (Negative); Opiate Screen Urine Negative (Negative); PCP Screen Urine Negative (Negative); THC Screen Urine Negative (Negative)
[2021-05-17 20:36] LABS: Add Urine Microscopic? YES; Bilirubin Urine Neg (Negative); Blood Urine 2+ (Negative); Glucose Urine UA Norm (Normal); Ketones Urine Negative (Negative); Leukocyte Esterase Urine Negative (Negative); Nitrate Urine Negative (Negative); Protein Urine Trace (Negative); Urine Appearance Clear (CLEAR); Urine Color Yellow (Yellow); Urobilinogen Urine Norm (Negative); pH Urine 5 (5-7)
[2021-05-17 20:37] LABS: Add Urine Culture? Yes; Amorphous Sediment Urine 1+ /hpf; Bacteria Urine 1+ /hpf; Coarse Granular Casts Urine 0-4 /lpf; Hyaline Casts Urine 0-4 /lpf; Mucus Urine TRACE /hpf; Squamous Epithelial Cell Urine 0-4 /hpf (0-5); WBC Urine 15-25 /hpf (0-5)
[2021-05-17 21:18] VITALS: BP 151/92; O2SAT 94
[2021-05-17 21:21] VITALS: BP 151/92; RESP 18; O2SAT 97
--- NOTE | 2021-05-18 18:24 | PC.NURSE ---
pt notified via phone per request of to come back in for re-evaluation due to radiology report. pt stated that he was in [place] and would not be able to return to this ED until , this nurse advised pt to check into the nearest emergency department for evaluation. pt stated understanding
== END 2021-05-17 21:05 | disposition home or self-care (01) ==
PROVIDERS: Emergency Provider Emergency Medicine
DX: R41.82 Altered mental status, unspecified (principal); Z79.82 Long term (current) use of aspirin
CPT/HCPCS: 70450; 71045; 80053; 80306; 81001; 85025; 85610; 85730; 87086; 93005; 99283

== ENCOUNTER 2023-08-03 02:59 | Emergency (ER) | payer BC, MEDICAID, SELFPAY ==
[2023-08-03 03:01] VITALS: BP 160/98; PULSE 85; RESP 16; TEMP 36.6; O2SAT 97; BMI 25.1
[2023-08-03 03:12] LABS: Basophils % 0.2 %; Eosinophils # 0.1 10^3/uL (0.0-0.8); Eosinophils % 0.7 %; Lymphocytes # 2.6 10^3/uL (0.8-4.8); Lymphocytes % 31.4 %; Mean Corpuscular HGB Conc 34.2 g/dL (30-55); Mean Corpuscular Hemoglobin 28.6 pg (27-33); Mean Corpuscular Volume 83.7 fl (82-101); Mean Platelet Volume 9.4 fL (7.4-10.4); Monocytes # 0.7 10^3/uL (0.2-0.9); Monocytes % 8.9 %; Neutrophils # 4.88 10^3/uL (1.8-7.7); Neutrophils % 58.7 %; Nucleated Red Blood Cells % 0 %; Platelet Count 291 10^3/cmm (157-399); Red Blood Count 5.14 10^6/uL (3.85-5.65); Red Cell Distribution Width 12.6 % (12.1-15.1); White Blood Count 8.32 10^3/uL (3.29-11.43)
[2023-08-03 03:22] LABS: INR 0.97 (0.8-1.2)
[2023-08-03 03:23] LABS: Partial Thromboplastin Time 31.9 SECONDS (23.9-36.7)
[2023-08-03] MEDS: ondansetron 2 mg/ML SDV 2 mL 8 MG IVP (03:35)
[2023-08-03 03:36] LABS: Alanine Aminotransferase 78 U/L (0-41); Albumin Level 4.3 g/dL (3.5-5.2); Alcohol Level < 10 mg/dL (0-10); Alkaline Phosphatase 142 U/L (40-130); Anion Gap 15.9 (5-19); Aspartate Amino Transferase 45 U/L (0-40); Blood Urea Nitrogen 8 mg/dL (6-20); Carbon Dioxide 26 mmol/L (22-29); Chloride 97 mmol/L (98-107); Creatinine Clr Calc Pharmacy 151.3532; Globulin 4.3 g/dL (1.3-4.6); Glomerular Filtration Rate 123.7 mL/min (90-130); Glucose 96 mg/dL (65-115); Lipase 17 U/L (13-60); Osmolality Calculated 278 mOsm/kg (285-295); Potassium 3.9 mmol/L (3.5-5.1); Sodium 135 mmol/L (136-145); Total Bilirubin 0.5 mg/dL (0.15-1.2); Total Protein 8.6 g/dL (6.6-8.7)
[2023-08-03 03:37] LABS: Ammonia 30 umol/L (16-60); Lactic Sepsis W/Reflex 1.2 mmol/L (0.5-2.2)
[2023-08-03 04:00] LABS: Add Urine Culture? No; Bilirubin Urine Neg (Negative); Blood Urine Neg (Negative); Glucose Urine UA Norm (Normal); Ketones Urine Negative (Negative); Leukocyte Esterase Urine Negative (Negative); Nitrate Urine Negative (Negative); Protein Urine Neg (Negative); Specific Gravity, Urine 1.005 (1.005-1.030); Urine Appearance Clear (CLEAR); Urine Color Light yellow (Yellow); Urobilinogen Urine Neg (Negative); pH Urine 6.5 (5-7)
[2023-08-03 04:02] LABS: Amphetamines Screen Urine Positive (Negative); Barbiturates Screen Urine Negative (Negative); Benzodiazepines Screen Urine Positive (Negative); Cocaine Screen Urine Negative (Negative); Opiate Screen Urine Positive (Negative); PCP Screen Urine Negative (Negative); THC Screen Urine Negative (Negative)
--- NOTE | 2023-08-03 04:47 | CTR_ITS ---
PROCEDURE INFORMATION: Exam: CT Abdomen And Pelvis With Contrast Exam date and time: 08/03/2023 5:00 AM Age: 42 years old Clinical indication: Nausea and vomiting; Additional info: Abd pain TECHNIQUE: Imaging protocol: Computed tomography of the abdomen and pelvis with contrast. Radiation optimization: All CT scans at this facility use at least one of these dose optimization techniques: automated exposure control; mA and/or kV adjustment per patient size (includes targeted exams where dose is matched to clinical indication); or iterative reconstruction. Contrast material: OMNI 350; Contrast volume: 100 ml; Contrast route: INTRAVENOUS (IV); COMPARISON: CT abdomen pelvis w con* [id number] 12/24/2020 10:38 AM RADIATION DOSE METRICS: Total DLP (mGy-cm): 427.2 FINDINGS: Lungs: 5 mm subsolid left lower lobe nodule (series 3, image 6). Suggestion of additional anterior right middle lobe nodule incompletely evaluated (series 3, image 1). Heart: Base of heart is unremarkable as visualized. Liver: Normal. No mass. Gallbladder and bile ducts: Normal. No calcified stones. No ductal dilation. Pancreas: Normal. No ductal dilation. Spleen: Splenule is noted. Adrenal glands: Normal. No mass. Kidneys and ureters: Normal. No hydronephrosis. Stomach and bowel: Moderate colonic stool burden. Appendix: Appendix is not well appreciated, no secondary evidence of appendicitis. Intraperitoneal space: Unremarkable. No free air. No significant fluid collection. Vasculature: Unremarkable. No abdominal aortic aneurysm. Lymph nodes: Unremarkable. No enlarged lymph nodes. Urinary bladder: Bladder is distended with circumferential wall thickening. Reproductive: Unremarkable as visualized. Bones/joints: Mild scattered degenerative change of the visualized osseous structures. Soft tissues: Unremarkable. Other findings: Motion abnormality limits the examination. CT/CT abdomen pelvis w con* [id number] IMPRESSION: 1. Study is limited by motion. 2. Findings suggest possible cystitis, correlate with laboratory findings. 3. Recommend outpatient CT for lung nodularity. 4. Moderate colonic stool burden.
[2023-08-03] MEDS: iohexol 350 mg/mL 500 mL Btl (per mL) IV (05:00)
--- NOTE | 2023-08-03 05:30 | W.ED.NAVMDI ---
HPI - Nausea/Vomiting/Diarrhea General: Chief complaint: Nausea/Vomiting/Diarrhea Stated complaint: vomiting blood Time Seen by Provider: 08/03/23 03:01 History of Present Illness: 42-year-old male presents emergency department complaints of generalized abdominal pain. He states that he feels like he was having episodes of vomiting blood. He does have a history of alcohol abuse with cirrhosis of the liver as well as hepatitis C and methamphetamine abuse. Patient does endorse injecting fentanyl approximately 4 days ago. He does have multiple sores to his left upper leg and left lower leg lateral aspect. He states he has had intermittent abdominal cramping pain that he describes as a 5 out of 10. He denies fevers chills or night sweats. He states that the episode he did have a vomiting had a small amount of blood in it. He has not vomited since he has been here in the emergency department. Associated nausea: Yes Associated symtoms: Reports nausea Review of Systems General: Reports: 10 or more systems reviewed and unremarkable except in HPI and below GI: Reports: abdominal pain, nausea, vomiting and hematemesis [facility] ED PFSH: Social History Smoking and tobacco/nicotine status: never used tobacco/nicotine Alcohol intake: never Substance/Drug Use: never Physical Exam Narrative: EXAM NARRATIVE: Constitutional: the patient appears well nourished and of normal development. Vital signs as documented. No acute distress at present. Alert and oriented-to person, place, time and situation. Head, eyes, ears, nose, mouth, throat: Normocephalic, atraumatic. Pupils-equal, round, reactive to light. No scleral icterus. Normal-appearing external ears. Normal appearing nasal turbinates, no drainage. No obvious oral lesions, posterior oropharynx without erythema or exudates. Neck: Supple, trachea is midline, no lymphadenopathy, no jugular venous distension, thyromegaly, or carotid bruits. Carotid upstrokes are brisk bilaterally. Lungs: clear to auscultation to all lung paul. Symmetrical rise and fall of chest, no obvious signs of increased work of breathing at present. Cardiac: Regular rate and rhythm, positive S1, S2. No murmurs, rubs or gallops that I can appreciate Abdomen: Soft, non-tender to palpation, normal active bowel sounds to all quadrants. No palpable masses, no organomegaly and abdominal bruits. Extremities: 2+ pulses in the upper extremities that are equal bilaterally, 2+ pulses in the lower extremities that are equal bilaterally. Non-edematous. Moves all extremities well, sensation to all extremities are noted. Skin: Warm, dry, intact. Patient has 2 areas of superficial scabs to the left upper thigh and the left lateral lower leg. There is no active cellulitis that I can appreciate at present. Course Vital Signs: Vital signs: Vital Signs Temperature 97.8 F 08/03/23 03:01 Pulse Rate 85 08/03/23 03:01 Respiratory Rate 16 08/03/23 03:01 Blood Pressure 160/98 08/03/23 03:01 Pulse Oximetry 97 08/03/23 03:01 Oxygen Delivery Me thod Room Air 08/03/23 03:01 MDM - Nausea/Vomiting/Diarrhea Medical Decision Making Physical exam completed and documented, I will obtain laboratory evaluation to include a CBC, CMP, lipase, urinalysis, and a CT scan of the patient's abdomen pelvis to evaluate for possible differential diagnosis of bowel obstruction, incarcerated hernia, abdominal wall strain, abdominal wall hematoma, constipation, colitis, acute appendicitis, diverticulitis, gastroenteritis. Medical Records I reviewed the patient's medical records. Lab Data I reviewed the patient's lab results. 08/03/23 02:50 08/03/23 02:50 Radiology Impressions Abdomen/Pelvis CT 08/03/23 04:47 IMPRESSION: 1. Study is limited by motion. 2. Findings suggest possible cystitis, correlate with laboratory findings. 3. Recommend outpatient CT for lung nodularity. 4. Moderate colonic stool burden. Laboratory Results WBC 8.32 10^3/uL (3.29-11.43) 08/03/23 02:50 RBC 5.14 10^6/uL (3.85-5.65) 08/03/23 02:50 Hgb 14.70 g/dL (11.27-16.99) 08/03/23 02:50 Hct 43.0 % (37-53) 08/03/23 02:50 MCV 83.7 fl (82-101) 08/03/23 02:50 MCH 28.6 pg (27-33) 08/03/23 02:50 MCHC 34.2 g/dL (30-55) 08/03/23 02:50 RDW 12.6 % (12.1-15.1) 08/03/23 02:50 Plt Count 291 10^3/cmm (157-399) 08/03/23 02:50 MPV 9.4 fL (7.4-10.4) 08/03/23 02:50 Neut % (Auto) 58.7 % 08/03/23 02:50 Lymph % (Auto) 31.4 % 08/03/23 02:50 Gregory % (Auto) 8.9 % 08/03/23 02:50 Eos % (Auto) 0.7 % 08/03/23 02:50 Baso % (Auto) 0.2 % 08/03/23 02:50 Neut # (Auto) 4.88 10^3/uL (1.8-7.7) 08/03/23 02:50 Lymph # (Auto) 2.6 10^3/uL (0.8-4.8) 08/03/23 02:50 Gregory # (Auto) 0.7 10^3/uL (0.2-0.9) 08/03/23 02:50 Eos # (Auto) 0.1 10^3/uL (0.0-0.8) 08/03/23 02:50 Baso # (Auto) 0.0 10^3/uL (0.0-0.1) 08/03/23 02:50 Nucleated RBC % (auto) 0 % 08/03/23 02:50 Nucleated RBCs # 0.0 /100WBC 08/03/23 02:50 PT 13.10 SECONDS (12.1-14.9) 08/03/23 02:50 INR 0.97 (0.8-1.2) 08/03/23 02:50 APTT 31.9 SECONDS (23.9-36.7) 08/03/23 02:50 Sodium 135 mmol/L (136-145) L 08/03/23 02:50 Potassium 3.9 mmol/L (3.5-5.1) 08/03/23 02:50 Chloride 97 mmol/L (98-107) L 08/03/23 02:50 Carbon Dioxide 26 mmol/L (22-29) 08/03/23 02:50 Anion Gap 15.9 (5-19) 08/03/23 02:50 BUN 8 mg/dL (6-20) 08/03/23 02:50 Creatinine 0.7 mg/dL (0.7-1.2) 08/03/23 02:50 GFR Calculation 123.7 mL/min (90-130) 08/03/23 02:50 Glucose 96 mg/dL (65-115) 08/03/23 02:50 Calculated Osmolality 278 mOsm/kg (285-295) L 08/03/23 02:50 Lactic Acid 1.2 mmol/L (0.5-2.2) 08/03/23 02:50 Calcium 10.0 mg/dL (8.5-10.5) 08/03/23 02:50 Total Bilirubin 0.5 mg/dL (0.15-1.2) 08/03/23 02:50 AST 45 U/L (0-40) H 08/03/23 02:50 ALT 78 U/L (0-41) H 08/03/23 02:50 Alkaline Phosphatase 142 U/L (40-130) H 08/03/23 02:50 Ammonia 30 umol/L (16-60) 08/03/23 02:50 Total Protein 8.6 g/dL (6.6-8.7) 08/03/23 02:50 Albumin 4.3 g/dL (3.5-5.2) 08/03/23 02:50 Globulin 4.3 g/dL (1.3-4.6) 08/03/23 02:50 Lipase 17 U/L (13-60) 08/03/23 02:50 Urine Color Light yellow (Yellow) 08/03/23 03:26 Urine Appearance Clear (CLEAR) 08/03/23 03:26 Urine pH 6.5 (5-7) 08/03/23 03:26 Ur Specific [place] 1.005 (1.005-1.030) 08/03/23 03:26 Urine Protein Neg (Negative) 08/03/23 03:26 Urine Glucose (UA) Norm (Normal) 08/03/23 03:26 Urine Ketones Negative (Negative) 08/03/23 03:26 Urine Blood Neg (Negative) 08/03/23 03:26 Urine Nitrate Negative (Negative) 08/03/23 03:26 Urine Bilirubin Neg (Negative) 08/03/23 03:26 Urine Urobilinogen Neg mg/dL (Negative) 08/03/23 03:26 Ur Leukocyte Esterase Negative (Negative) 08/03/23 03:26 Urine RBC None /hpf (0-2) 08/03/23 03:26 Urine WBC None /hpf (0-5) 08/03/23 03:26 Ur Squamous Epith Cells None /hpf (0-5) 08/03/23 03:26 Amorphous Sediment Not Reportable 08/03/23 03:26 Urine Bacteria None /hpf (NONE) 08/03/23 03:26 Urine Opiates Screen Positive ng/mL (Negative) H 08/03/23 03:26 Ur Barbiturates Screen Negative ng/mL (Negative) 08/03/23 03:26 Ur Phencyclidine Scrn Negative ng/mL (Negative) 08/03/23 03:26 Ur Amphetamines Screen Positive ng/mL (Negative) H 08/03/23 03:26 U Benzodiazepines Scrn Positive ng/mL (Negative) H 08/03/23 03:26 Urine Cocaine Screen Negative ng/mL (Negative) 08/03/23 03:26 U Marijuana (THC) Screen Negative ng/mL (Negative) 08/03/23 03:26 Ethyl Alcohol < 10 mg/dL (0-10) 08/03/23 02:50 All radiology interpretation(s) finalized by discharge Discharge Plan Discharge Patient Disposition: Home Clinical Impression: Gastroenteritis Condition: Stable Prescriptions: New ondansetron HCl 4 mg tablet 4 mg PO Q6H PRN (Reason: nausea and vomiting) Qty: 14 0RF No Action aspirin [Gardenia Aspirin] 325 mg Tablet 325 mg PO PRN ibuprofen 200 mg Tablet 800 mg PO Q6H PRN (Reason: Pain) methadone See Rx Instructions .ROUTE .COMPLEX Rx Instructions: TAKE NEEDED Discharge Orders: Discharge ED (Routine); Ordered 08/03/23 Ordered By: Lul Moody Discharge Diet: Usual diet Discharge Activity: Resume usual activity Patient Instructions: Opioid Safety, Pain Management Activity Restrictions/Additional Instructions: Activity Restrictions/Additional Instructions: Thank you for choosing [facility] for your healthcare needs today. Please realize that you were seen in the Emergency Department and that we are providing you with an emergency medical screening exam and this may not be a complete and all inclusive of all the testing and or medical work-up that you may need to determine your ailment or severity of your illness. It is very important that you follow-up as instructed with your Primary care provider or Specialist for additional evaluation and to discuss your medical treatment plan. Coding Level of Care Code ED Controller Repairer And Tester for Zain Zamora
[2023-08-03 05:44] VITALS: BP 160/98; PULSE 85; RESP 16; TEMP 36.6; O2SAT 97
== END 2023-08-03 05:45 | disposition home or self-care (01) ==
PROVIDERS: Emergency Provider Internal Medicine
DX: K52.9 Noninfective gastroenteritis and colitis, unspecified (principal)
CPT/HCPCS: 74177; 80053; 80306; 80307; 81001; 82140; 83605; 83690; 85025; 85610; 85730; 96374; 99285; J2405; Q9967

== ENCOUNTER 2023-08-06 03:51 | Emergency (ER) | payer BC, MEDICAID, SELFPAY ==
[2023-08-06 03:54] VITALS: BP 140/91; PULSE 96; RESP 16; TEMP 37.1; O2SAT 99; BMI 25.8
[2023-08-06] MEDS: promethazine 25 mg Tablet PO (04:41)
[2023-08-06] MEDS: cloNIDine 0.1 mg Tablet 0.100000000000000006 MG PO (04:41)
--- NOTE | 2023-08-06 04:41 | W.ED.GENADLT ---
HPI - General Adult General: Chief complaint: General Medical Stated complaint: wanting to detox from fentyal Time Seen by Provider: 08/06/23 03:59 History of Present Illness: 42-year-old male who is 6 IV fentanyl. He notes that if he does these every 12 hours or so, he begins to get withdrawal symptoms which can be quite severe. These include shaking, nausea and vomiting, etc. He would like to detox from fentanyl. He has not had significant success in the past. He has used within the last 24 hours. Associated symptoms: Reports headache(s) and nausea; Deny chest pain, confusion, dyspnea, rash, palpitations or vomiting Review of Systems Const: Reports: chills and body aches; Denies: fever(s) Eyes: Denies: change in vision Card: Denies: chest pain or palpitations Resp: Denies: dyspnea, productive cough, non-productive cough or wheezing GI: Reports: abdominal pain, nausea and diarrhea; Denies: vomiting or hematochezia Skin/Breast: Denies: rash Neuro: Reports: headache(s); Denies: weakness in extremities, dizziness or confusion Psych: Reports: anxiety PFSH ED PFSH: Social History Smoking and tobacco/nicotine status: never used tobacco/nicotine Alcohol intake: never Substance/Drug Use: never Physical Exam Const: COMMON NORMALS: no acute distress GENERAL APPEARANCE: cooperative; not ill appearing and not frail appearing HENMT: COMMON NORMALS: normocephalic, atraumatic and Normal external nose present HEAD & SCALP: normocephalic and atraumatic FACE & SINUS: normal facial exam and face symmetric NOSE: Normal external nose present Eye: COMMON NORMALS: Equal, round and reactive pupils present and EOMs intact bilaterally PUPIL: Yes Equal, round and reactive pupils present Neck/C-Spine: GENERAL: Yes trachea midline Chest: CHEST: Yes Symmetrical chest wall rise Resp: COMMON NORMALS: normal respiratory effort, No retractions, No use of accessory muscles and clear to auscultation bilaterally AUSCULTATION: clear to auscultation bilaterally Cardio: COMMON NORMALS: regular rate and regular rhythm RATE: regular rate RHYTHM: regular rhythm GI: COMMON NORMALS: Normal to inspection, nondistended, normoactive bowel sounds present Extremity: COMMON NORMALS: no pedal edema Neuro: PAUL COMA SCALE: document GCS findings [place] coma scale eye opening: Spontaneous Paul coma scale verbal response: Orientated Paul coma scale motor response: Obey commands [place] coma scale total score: 15 SENSORY EXAM: Yes extremities (intact) Psych: COMMON NORMALS: speech normal SPEECH: Yes normal speech Skin: COMMON NORMALS: no rashes or lesions noted GENERAL SKIN EXAM: no rashes or lesions noted Course Vital Signs: Vital signs: Vital Signs Temperature 98.7 F 08/06/23 04:50 Pulse Rate 96 08/06/23 04:50 Respiratory Rate 16 08/06/23 04:50 Blood Pressure 140/91 08/06/23 04:50 Pulse Oximetry 99 08/06/23 04:50 MDM - General Adult Medical Decision Making The patient is not showing signs of significant withdrawal at this time. He will be given prescription for clonidine, as well as promethazine to control his symptoms. Clinically he is stable for discharge No radiology studies performed this visit Discharge Plan Discharge Patient Disposition: Home Clinical Impression: Acute opioid withdrawal Condition: Stable Prescriptions: New promethazine 25 mg tablet 50 mg PO Q6H PRN (Reason: nausea and vomiting) Qty: 20 0RF clonidine HCl 0.1 mg tablet 0.1 mg PO Q8H PRN (Reason: withdrawal symptoms) Qty: 20 0RF No Action aspirin [Gardenia Aspirin] 325 mg Tablet 325 mg PO PRN ibuprofen 200 mg Tablet 800 mg PO Q6H PRN (Reason: Pain) methadone See Rx Instructions .ROUTE .COMPLEX Rx Instructions: TAKE NEEDED ondansetron HCl 4 mg tablet 4 mg PO Q6H PRN (Reason: nausea and vomiting) Qty: 14 0RF Discharge Orders: Discharge ED (Routine); Ordered 08/06/23 Ordered By: Chai Deleon Patient Instructions: Opioid Withdrawal (ED), Opioid Safety, Pain Management Activity Restrictions/Additional Instructions: Take medications scheduled for the first 36 hours, then as needed. Return for any problems. Coding Level of Care Code ED Precision Dyer for Zain Zamora
[2023-08-06 04:50] VITALS: BP 140/91; PULSE 96; RESP 16; TEMP 37.1; O2SAT 99
== END 2023-08-06 04:52 | disposition home or self-care (01) ==
PROVIDERS: Emergency Provider Emergency Medicine
DX: F11.23 Opioid dependence with withdrawal (principal)
CPT/HCPCS: 99283; Q0169

== ENCOUNTER 2023-08-13 09:52 | Emergency (ER) | payer BC, MEDICAID, SELFPAY ==
[2023-08-13 10:03] VITALS: BP 138/82; PULSE 101; RESP 18; TEMP 36.9; O2SAT 97; BMI 24.3
--- NOTE | 2023-08-13 10:15 | ED_ITS ---
HPI - General Adult General: Chief complaint: General Medical Stated complaint: body aches , N/V Time Seen by Provider: 08/13/23 09:59 Source: patient Mode of arrival: ambulatory Limitations: no limitations History of Present Illness: Patient is a 42-year-old male who presents to ED today stating he overall just feels weak. He states he quit IV fentanyl cold turkey 9 days ago. Patient was a habitual user for years. He states during the first few days following cessation he had significant withdrawal symptoms. He feels like these have improved but is concerned stating I just thought I would feel better by now . Patient states he has been waking up in the mornings with feeling like his stomach is in knots. He has been taking alcohol shooters to help with this. He states he is committed to continued opiate sobriety. He was given medications on his last visit here to help with symptoms that he filled but has not taken. Onset (ago): day(s) Severity: moderate Pain Consistency: intermittent Relieving factors: other (alcohol helps with his stomach pains) Exacerbating factors: none Associated symptoms: Reports nausea; Deny chest pain, confusion, dyspnea, headache(s), malaise, rash, palpitations, syncope or vomiting Treatments prior to arrival: none Review of Systems Const: Reports: other (generalized weakness); Denies: fever(s), chills, body aches, fatigue or malaise Eyes: Denies: change in vision, blurry vision, floaters or seeing flashes Card: Denies: chest pain, palpitations, irregular heart rhythm, lightheadedness, syncope or pre-syncope Resp: Denies: dyspnea GI: Reports: abdominal pain and nausea; Denies: vomiting or change in bowel habits Musc: Denies: neck pain, back pain, extremity pain or joint pain Skin/Breast: Denies: rash Neuro: Denies: headache(s), numbness in extremities, weakness in extremities, sensory changes, difficulty walking, dizziness, confusion, Slurred speech present, difficulty communicating thoughts or seizure-like activity PFS ED PFSH: Social History Smoking and tobacco/nicotine status: never used tobacco/nicotine Alcohol intake: never Substance/Drug Use: never Physical Exam Const: COMMON NORMALS: no acute distress, average body habitus, patient oriented x3, no limitations, alert and well nourished ORIENTATION/CONSCIOUSNESS: Yes awake, Yes oriented to person, Yes oriented to place and Yes oriented to time Resp: COMMON NORMALS: normal respiratory effort and clear to auscultation bilaterally AUSCULTATION: clear to auscultation bilaterally Cardio: COMMON NORMALS: regular rhythm RATE: tachycardic RHYTHM: regular rhythm GI: COMMON NORMALS: Normal to inspection, nondistended, normoactive bowel sounds present, Soft to palpation and non-tender PALPATION: Yes Soft to palpation Neuro: COMMON NORMALS: patient oriented x3 SENSORIUM/ORIENTATION: Yes alert, Yes oriented to person, Yes oriented to place and Yes oriented to time Course Vital Signs: Vital signs: Vital Signs Temperature 98.5 F 08/13/23 10:03 Pulse Rate 105 H 08/13/23 10:22 Respiratory Rate 18 08/13/23 10:03 Blood Pressure 144/99 08/13/23 10:22 Pulse Oximetry 99 08/13/23 10:22 Oxygen Delivery Me thod Room Air 08/13/23 10:03 MDM - General Adult Medical Decision Making I sat down and spoke with patient for quite some time. He states he just had labs drawn on his last ED visit and does not want to repeat these today. He does not want any type of mental health evaluation or help at this time. He states he has family support and is open to attending drug abuse counseling groups. He states he has medications given to him from his last ED visit at home that he can use if needed. We did discuss his alcohol use. Patient states he is not a chronic drinker but just started to help with opiate withdrawal symptoms. Discussed my concerns with this to which he seems to understand. Ultimately I asked what I could do for patient today and he just seemed to want some type of reassurance that opiate withdraw can sometimes take longer than the 9 days he has went so far. He is through the severe/acute withdraw symptoms but I explained to patient that for a habitual IV fentanyl user for years-it can take weeks to get back to any sense of normalcy . Patient is cleared from an ED standpoint. Medical Records I reviewed the patient's medical records. Lab Data I reviewed the patient's lab results. No radiology studies performed this visit Discharge Plan Discharge Patient Disposition: Home Clinical Impression: Narcotic dependence, in remission Condition: Stable Prescriptions: No Action aspirin [Gardenia Aspirin] 325 mg Tablet 325 mg PO PRN Discharge Orders: Discharge ED (Routine); Ordered 08/13/23 Ordered By: Ruby Ramírez Activity Restrictions/Additional Instructions: As we discussed, I commended your sobriety over the past 9 days. Please continue to strive for sobriety. The worst of the withdrawal symptoms should be over but it may take several weeks for you to return to any sense of normalcy . As we discussed, I encourage you to reach out to family and friends for social or emotional support as well as drug abuse support groups. Coding Level of Care Code ED Station Jailer for Zain Zamora
[2023-08-13 10:22] VITALS: BP 144/99; PULSE 105; O2SAT 99
== END 2023-08-13 10:36 | disposition home or self-care (01) ==
PROVIDERS: Emergency Provider Physician Assistant
DX: F11.21 Opioid dependence, in remission (principal)
CPT/HCPCS: 99281

== ENCOUNTER 2024-02-20 17:30 | Emergency (ER) | payer BC, MEDICAID, SELFPAY ==
[2024-02-20 17:35] VITALS: BP 148/102; PULSE 73; RESP 14; TEMP 36.9; O2SAT 97; BMI 29.4
[2024-02-20 17:40] VITALS: RESP 16; O2SAT 98
--- NOTE | 2024-02-20 17:55 | XRR_ITS ---
PROCEDURE INFORMATION: Exam: XR Chest Exam date and time: 02/20/2024 6:08 PM Age: 43 years old Clinical indication: Shortness of breath; Additional info: Cp SOB TECHNIQUE: Imaging protocol: Radiologic exam of the chest. Views: 1 view. COMPARISON: CR XR chest 1V portable [id number] 05/17/2021 5:46 PM FINDINGS: Lungs: Unremarkable. No consolidation or mass. Pleural spaces: Unremarkable. No pleural effusion. No pneumothorax. Heart/Mediastinum: Unremarkable. No cardiomegaly. Bones/joints: Unremarkable. XR/XR chest 1V portable [id number] IMPRESSION: No acute findings.
--- NOTE | 2024-02-20 17:55 | ECG_ITS ---
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 Measurements Intervals [place] Rate: 82 P: 44 [place]: 162 QRS: 47 QRSD: 101 T: 44 QT: 365 QTc: 427 Interpretive Statements SINUS RHYTHM POSSIBLE ANTERIOR MYOCARDIAL INFARCTION , OF INDETERMINATE AGE [30 ms Q WAVE IN V3/V4, OR R < 0.2 mV IN V4] Compared to ECG 05/17/2021 16:53:00 Myocardial infarct finding now present Atrial fibrillation no longer present Electronically Signed On 02-21-2024 01:13:25 CDT by Pedro Luis Paulino M.D. [email or web address]
--- NOTE | 2024-02-20 18:05 | ED_ITS ---
HPI - SOB/Dyspnea 2 General: Chief Complaint: Shortness of Breath/Dyspnea Stated Complaint: SOB Time Seen by Provider: 02/20/24 17:36 Source: patient Mode of arrival: ambulatory Limitations: no limitations History of Present Illness: HPI Narrative: 43-year-old male here from senior care he state s over the last 3 to 4 days he had a very sharp pain in the right side of his chest. States it is worse with movement and inspiration. States the pains 6 out of 10 currently it is improved with rest. No history of respiratory or cardiac issues. No history of DVTs or PEs Associated symptoms: Reports chest pain; Deny abdominal pain, fever(s), nausea or vomiting Related Data Home Medications Medication Instructions Recorded Confirmed aspirin 325 mg tablet (Gardenia 325 mg PO PRN 12/24/20 08/13/23 Aspirin) Allergies Allergy/AdvReac Type Severity Reaction Status Date / Time No Known Allergies Allergy Verified 02/20/24 17:40 Review of Systems 2 Const: Denies: fever(s), chills, body aches or change in appetite ENMT: Denies: throat pain or dental pain Card: Reports: chest pain Resp: Reports: dyspnea GI: Denies: abdominal pain, nausea, vomiting or diarrhea Musc: Denies: neck pain or back pain Skin/Breast: Denies: rash Neuro: Denies: headache(s) PFSH ED 2 PFSH: Social History Smoking and tobacco/nicotine status: never used tobacco/nicotine Alcohol intake: never Substance/Drug Use: never Physical Exam 2 Const: COMMON NORMALS: no acute distress, patient oriented x3 and healthy appearing HENMT: COMMON NORMALS: normocephalic and atraumatic HEAD & SCALP: n ormocephalic and atraumatic Eye: COMMON NORMALS: conjunctivae normal CONJUNCTIVA: Yes conjunctivae normal Neck/C-Spine: COMMON NORMALS: full ROM and supple Chest: COMMONS NORMALS: normal inspection of the chest Resp: COMMON NORMALS: normal respiratory effort, No retractions, No use of accessory muscles and clear to auscultation bilaterally AUSCULTATION: clear to auscultation bilaterally Cardio: COMMON NORMALS: regular rate, regular rhythm and No murmurs present (Cardio) RATE: regular rate RHYTHM: regular rhythm GI: COMMON NORMALS: Normal to inspection, nondistended, normoactive bowel sounds present, Soft to palpation, non-tender and no masses PALPATION: Yes Soft to palpation Extremity: COMMON NORMALS: normal to inspection and full ROM Neuro: COMMON NORMALS: patient oriented x3, moves all extremities and no focal motor deficits Psych: COMMON NORMALS: mental status grossly normal, Normal thought process present and cooperative THOUGHT PROCESS: Normal thought process present Skin: COMMON NORMALS: no rashes or lesions noted and no wounds GENERAL SKIN EXAM: no rashes or lesions noted Course 2 Vital Signs: Vital signs: Vital Signs Temperature 98.5 F 02/20/24 17:35 Pulse Rate 86 02/20/24 18:42 Respiratory Rate 16 02/20/24 18:42 Blood Pressure 154/97 02/20/24 18:42 Pulse Oximetry 96 02/20/24 18:42 Oxygen Delivery Me thod Room Air 02/20/24 17:40 MDM - SOB/Dyspnea Medical Decision Making Patient presents here right-sided chest pains atypical in nature has been going on for roughly a week chest x-ray troponin D-dimer all negative. No signs of acute coronary syndrome or pulm embolism patient stable for discharge follow-up PCP return if worsening. Medical Records I reviewed the patient's medical records. Lab Data I reviewed the patient's lab results. 02/20/24 18:10 02/20/24 18:10 Labs/Radiology: Laboratory Results WBC 7.05 10^3/uL (3.29-11.43) 02/20/24 18:10 RBC 4.54 10^6/uL (3.85-5.65) 02/20/24 18:10 Hgb 14.00 g/dL (11.27-16.99) 02/20/24 18:10 Hct 41.1 % (37-53) 02/20/24 18:10 MCV 90.5 fl (82-101) 02/20/24 18:10 MCH 30.8 pg (27-33) 02/20/24 18:10 MCHC 34.1 g/dL (30-55) 02/20/24 18:10 RDW 13.4 % (12.1-15.1) 02/20/24 18:10 Plt Count 243 10^3/cmm (157-399) 02/20/24 18:10 MPV 9.6 fL (7.4-10.4) 02/20/24 18:10 Neut % (Auto) 61.6 % 02/20/24 18:10 Lymph % (Auto) 28.1 % 02/20/24 18:10 [place] % (Auto) 8.9 % 02/20/24 18:10 Eos % (Auto) 0.7 % 02/20/24 18:10 Baso % (Auto) 0.6 % 02/20/24 18:10 Neut # (Auto) 4.34 10^3/uL (1.8-7.7) 02/20/24 18:10 Lymph # (Auto) 2.0 10^3/uL (0.8-4.8) 02/20/24 18:10 [place] # (Auto) 0.6 10^3/uL (0.2-0.9) 02/20/24 18:10 Eos # (Auto) 0.1 10^3/uL (0.0-0.8) 02/20/24 18:10 Baso # (Auto) 0.0 10^3/uL (0.0-0.1) 02/20/24 18:10 Nucleated RBC % (auto) 0 % 02/20/24 18:10 Nucleated RBCs # 0.0 /100WBC 02/20/24 18:10 D-Dimer 0.42 ug/mLFEU (0-0.59) 02/20/24 18:10 Sodium 140 mmol/L (136-145) 02/20/24 18:10 Potassium 4.9 mmol/L (3.5-5.1) 02/20/24 18:10 Chloride 102 mmol/L (98-107) 02/20/24 18:10 Carbon Dioxide 28 mmol/L (22-29) 02/20/24 18:10 Anion Gap 14.9 (5-19) 02/20/24 18:10 BUN 19 mg/dL (6-20) 02/20/24 18:10 Creatinine 0.9 mg/dL (0.7-1.2) 02/20/24 18:10 GFR Calculation 92.1 mL/min (90-130) 02/20/24 18:10 Glucose 103 mg/dL (65-115) 02/20/24 18:10 Calculated Osmolality 293 mOsm/kg (285-295) 02/20/24 18:10 Calcium 9.4 mg/dL (8.5-10.5) 02/20/24 18:10 Total Bilirubin 0.4 mg/dL (0.15-1.2) 02/20/24 18:10 AST 233 U/L (0-40) H 02/20/24 18:10 ALT 606 U/L (0-41) H 02/20/24 18:10 Alkaline Phosphatase 118 U/L (40-130) 02/20/24 18:10 Troponin T Baseline 13 ng/L (0-15) 02/20/24 18:10 Total Protein 7.5 g/dL (6.6-8.7) 02/20/24 18:10 Albumin 4.8 g/dL (3.5-5.2) 02/20/24 18:10 Globulin 2.7 g/dL (1.3-4.6) 02/20/24 18:10 All radiology interpretation(s) finalized by discharge EKG Data EKG 1: I personally reviewed and interpreted this EKG as follows: EKG Interpretation Date: 02/20/24 EKG interpretation time: 18:02 Interpretation: nsr hr [address] or t wave abnormalities qrs 101 qtc 403 Discharge Plan Discharge Patient Disposition: Home Clinical Impression: Chest pain, Breath shortness Condition: Stable Prescriptions: No Action aspirin [Gardenia Aspirin] 325 mg Tablet 325 mg PO PRN Discharge Orders: Discharge ED (Routine); Ordered 02/20/24 Ordered By: Sugey Ahumada Discharge Diet: Advance as tolerated Discharge Activity: Resume usual activity Patient Instructions: Chest Pain (ED) Coding Level of Care Code ED Zig[facility] [employer]cher for Zain Zamora
[2024-02-20] MEDS: ketorolac 30 mg/mL INJ 15 MG IVP (18:10)
[2024-02-20 18:15] LABS: Basophils % 0.6 %; Eosinophils # 0.1 10^3/uL (0.0-0.8); Eosinophils % 0.7 %; Hematocrit 41.1 % (37-53); Lymphocytes % 28.1 %; Mean Corpuscular HGB Conc 34.1 g/dL (30-55); Mean Corpuscular Hemoglobin 30.8 pg (27-33); Mean Corpuscular Volume 90.5 fl (82-101); Mean Platelet Volume 9.6 fL (7.4-10.4); Monocytes # 0.6 10^3/uL (0.2-0.9); Monocytes % 8.9 %; Neutrophils # 4.34 10^3/uL (1.8-7.7); Neutrophils % 61.6 %; Nucleated Red Blood Cells % 0 %; Platelet Count 243 10^3/cmm (157-399); Red Blood Count 4.54 10^6/uL (3.85-5.65); Red Cell Distribution Width 13.4 % (12.1-15.1); White Blood Count 7.05 10^3/uL (3.29-11.43)
[2024-02-20 18:33] LABS: D Dimer 0.42 ug/mLFEU (0-0.59)
[2024-02-20 18:35] LABS: Troponin(5th) Baseline 13 ng/L (0-15)
[2024-02-20 18:37] LABS: Alanine Aminotransferase 606 U/L (0-41); Albumin Level 4.8 g/dL (3.5-5.2); Alkaline Phosphatase 118 U/L (40-130); Aspartate Amino Transferase 233 U/L (0-40); Blood Urea Nitrogen 19 mg/dL (6-20); Calcium 9.4 mg/dL (8.5-10.5); Carbon Dioxide 28 mmol/L (22-29); Chloride 102 mmol/L (98-107); Creatinine Clr Calc Pharmacy 121.2416; Globulin 2.7 g/dL (1.3-4.6); Glomerular Filtration Rate 92.1 mL/min (90-130); Glucose 103 mg/dL (65-115); Osmolality Calculated 293 mOsm/kg (285-295); Sodium 140 mmol/L (136-145); Total Bilirubin 0.4 mg/dL (0.15-1.2); Total Protein 7.5 g/dL (6.6-8.7)
[2024-02-20 18:42] VITALS: BP 154/97; PULSE 86; RESP 16; O2SAT 96
[2024-02-20 18:57] LABS: Anion Gap 14.9 (5-19); Potassium 4.9 mmol/L (3.5-5.1)
[2024-02-20 19:02] VITALS: BP 154/97; PULSE 82; RESP 16; O2SAT 96
== END 2024-02-20 19:10 | disposition home or self-care (01) ==
PROVIDERS: Emergency Provider Emergency Medicine
DX: R07.9 Chest pain, unspecified (principal); R06.02 Shortness of breath
CPT/HCPCS: 71045; 80053; 84484; 85025; 85378; 93005; 96374; 99285; J1885